=== PATIENT | female | born 1985 | race Caucasian/White ===

== ENCOUNTER 2017-03-11 08:22 | Emergency (ER) | payer OTHER ==
[~2017-03-11] VITALS: Ht 152.4 cm; Wt 105.3 kg
[~2017-03-11 08:22] MED LIST: AFRIN,GENASAL D15 ML BOTH NARES; AUGMENTIN875 MG PO; TESSALON PERLE100 MG PO
[2017-03-11 08:31] VITALS: BP 127/69
[2017-03-11] MEDS ORDERED: ADVIL200 MG PO (08:41)
[2017-03-11] MEDS ORDERED: [UNRECOGNIZED DRUG - REMARK] PO (08:42)
[2017-03-11] MEDS ORDERED: MEDROL DOSEPAK4 MG PO (09:57)
[2017-03-11] MEDS ORDERED: PEPCID20 MG PO (09:57)
== END 2017-03-11 10:10 | disposition home or self-care (01) ==
LOC: EME 08:22
DX: R20.0 Anesthesia of skin (principal); R60.9 Edema, unspecified; T50.905A Adverse effect of unspecified drugs, medicaments and biological substances, initial encounter
CPT/HCPCS: 99281; 99283; J7512